=== PATIENT | male | born 1985 | race Caucasian/White ===

== ENCOUNTER 2016-12-15 13:50 | Emergency (ER) | payer OTHER ==
[2016-12-15] MEDS ORDERED: NS 500 ML IV ONE (16:19)
--- NOTE | 2016-12-15 16:19 | EDPHY ---
H & P Time Seen by Provider: 12/15/16 15:50 HPI/ROS: CHIEF COMPLAINT: Lower abdominal pain, groin pain HISTORY OF PRESENT ILLNESS: Patient is a 31-year-old male presents emergency department with "bladder pain" since last week. Patient took a trip to [place]. He slipped on a couch in thought his discomfort was secondary to sleeping wrong. He continues to have suprapubic pain. It moved to his right groin. Today he developed severe pain the bent him over. Became very nauseated. No vomiting. No fever or diaphoresis. He now has an ache but the sharp pain has resolved. No recent trauma. No dysuria frequency. Patient is sexually active and monogamous. No discharge from his penis. REVIEW OF SYSTEMS: My complete review of systems is negative except as mentioned in the HPI. Past Medical/Surgical History: The asthma Social history: The patient drinks occasionally. He does not smoke. Smoking Status: Never smoked Physical Exam: Vitals noted GENERAL: Well-appearing, in no acute distress, alert. HEENT: Eyes normal to inspection, normal pharynx, no signs of dehydration. NECK: No thyromegaly, no lymphadenopathy, supple. RESPIRATORY: Clear to auscultation bilaterally, no rales, rhonchi or wheezing. CVS: Regular rate and rhythm, no rubs, murmurs, or gallops. ABDOMEN: Soft, mild suprapubic tenderness to palpation, mild right lower quadrant tenderness to palpation no rebound or guarding, nondistended, no organomegaly. : Circumcised. Normal appearing genitalia. No testicular tenderness or mass. No palpable hernia BACK: Normal to inspection, no CVA tenderness. SKIN: Normal color, no rash, warm, dry. No pallor. EXTREMITIES: No pedal edema, no joint swelling. NEURO/PSYCH: Alert and oriented, normal mood and affect Constitutional: Initial Vital Signs Temperature (C) 36.6 C 12/15/16 13:55 Heart Rate 57 L 12/15/16 13:55 Respiratory Rate 18 12/15/16 13:55 Blood Pressure 145/92 H 12/15/16 13:55 O2 Sat (%) 98 12/15/16 13:55 O2 Delivery Mode Room Air Allergies/Adverse Reactions: oxycodone HCl [From Percocet] Allergy (Mild, Verified 12/15/16 13:54) neomycin Allergy (Verified 12/15/16 13:54) shellfish derived Allergy (Verified 12/15/16 13:58) PROMAXINE HCL Allergy (Intermediate, Uncoded 12/12/10 17:20) tree nuts Allergy (Uncoded 12/15/16 13:58) Home Medications: Medication Instructions Recorded Albuterol 03/11/16 Tamsulosin HCl [Flomax] 0.4 mg PO DAILY #4 cap 12/15/16 Medical Decision Making ED Course/Re-evaluation: In the emergency department I discussed possible etiologies with the patient. I answered all his questions. IV was placed. He is not want pain medication at this time. Laboratory studies, urine, CT of the abdomen pelvis was ordered. Patient's CBC was normal. Chemistry panel unremarkable. Normal renal function. His UA showed positive red cells. CT abdomen and pelvis: Please refer the dictated report by Dr. Gigi Davis. The patient has a 2 mm distal right ureteral stone. I discussed the result with the patient. I answered all his questions. He was comfortable in the bed. I explained his diagnosis. He will follow up with Urology. He is given warnings prior to leaving. He did not want any narcotic medication. He was given Flomax. Patient has no significant pain at this time. However, doubt treat potential pain as a stone moves he was given Toradol 30 mg IV prior to leaving. Differential Diagnosis: Differential includes but is not limited to urinary tract infection, pyelonephritis, STD, hernia, kidney stone, bacteremia, sepsis, appendicitis - Data Points Laboratory Results: Laboratory Results 12/15/16 15:45 12/15/16 15:45 12/15/16 12/15/16 12/15/16 16:40 15:45 15:45 WBC 6.92 10^3/uL 10^3/uL (3.80-9.50) RBC 4.67 10^6/uL 10^6/uL (4.40-6.38) Hgb 15.6 g/dL g/dL (13.7-17.5) Hct 43.8 % % (40.0-51.0) MCV 93.8 fL fL (81.5-99.8) MCH 33.4 pg pg (27.9-34.1) MCHC 35.6 g/dL g/dL (32.4-36.7) RDW 12.1 % % (11.5-15.2) Plt Count 175 10^3/uL 10^3/uL (150-400) MPV 10.4 fL fL (8.7-11.7) Neut % (Auto) 56.0 % % (39.3-74.2) Lymph % (Auto) 32.5 % % (15.0-45.0) [place] % (Auto) 7.7 % % (4.5-13.0) Eos % (Auto) 2.3 % % (0.6-7.6) Baso % (Auto) 1.2 % % (0.3-1.7) Nucleat RBC Rel Count 0.0 % % (0.0-0.2) Absolute Neuts (auto) 3.88 10^3/uL 10^3/uL (1.70-6.50) Absolute Lymphs (auto) 2.25 10^3/uL 10^3/uL (1.00-3.00) Absolute Monos (auto) 0.53 10^3/uL 10^3/uL (0.30-0.80) Absolute Eos (auto) 0.16 10^3/uL 10^3/uL (0.03-0.40) Absolute Basos (auto) 0.08 10^3/uL 10^3/uL (0.02-0.10) Absolute Nucleated RBC 0.00 10^3/uL 10^3/uL (0-0.01) Immature Gran % 0.3 % % (0.0-1.1) Immature Gran # 0.02 10^3/uL 10^3/uL (0.00-0.10) Sodium 140 mEq/L mEq/L (134-144) Potassium 3.9 mEq/L mEq/L (3.5-5.2) Chloride 106 mEq/L mEq/L (97-110) Carbon Dioxide 24 mEq/l mEq/l (22-31) Anion Gap 10 mEq/L mEq/L (8-16) BUN 20 mg/dL mg/dL (7-23) Creatinine 1.2 mg/dL mg/dL (0.7-1.3) Estimated GFR > 60 Glucose 90 mg/dL mg/dL (70-100) Calcium 9.8 mg/dL mg/dL (8.5-10.4) Urine Color YELLOW Urine Appearance CLEAR Urine pH 6.0 (5.0-7.5) Ur Specific [place] 1.020 (1.002-1.030) Urine Protein NEGATIVE (NEGATIVE) Urine Ketones NEGATIVE (NEGATIVE) Urine Blood 1+ H (NEGATIVE) Urine Nitrate NEGATIVE (NEGATIVE) Urine Bilirubin NEGATIVE (NEGATIVE) Urine Urobilinogen NEGATIVE EU EU (0.2-1.0) Ur Leukocyte Esterase NEGATIVE (NEGATIVE) Urine RBC 10-15 /hpf H /hpf (0-3) Urine WBC 1-3 /hpf /hpf (0-3) Ur Epithelial Cells TRACE /lpf /lpf (NONE-1+) Urine Mucus TRACE /lpf /lpf (NONE-1+) Urine Glucose NEGATIVE (NEGATIVE) Medications Given: Discontinued Medications Sodium Chloride (Ns) 500 mls @ 0 mls/hr IV EDNOW ONE; Wide Open PRN Reason: Protocol Stop: 12/15/16 16:20 Last Admin: 12/15/16 16:29 Dose: 500 mls Departure - Departure Disposition: Home, Routine, Self-Care Clinical Impression: Kidney stone on right side Abdominal pain Qualifiers: Abdominal location: lower abdomen, unspecified Qualified Code(s): R10.30 - Lower abdominal pain, unspecified Condition: Good Instructions: Abdominal Pain (ED), Kidney Stones (ED) Additional Instructions: You have a 2 mm distal right ureteral stone. This will likely pass. Return with increasing pain, fever, vomiting or any other concerns. Referrals: Martin White MD [Medical Doctor] - 5-7 days, call for appt. Prescriptions: Tamsulosin HCl [Flomax] 0.4 mg PO DAILY #4 cap
[2016-12-15 16:33] LABS: % IMMATURE GRANULYOCYTES 0.3 % (0.0-1.1); ABSOLUTE IMMATURE GRANULOCYTES 0.02 10^3/uL (0.00-0.10); ADD DIFF? NO; ADD MORPH? NO; ADD SCAN? NO; ATYPICAL LYMPHOCYTE FLAG 20 (0-99); FRAGMENT RBC FLAG 0 (0-99); HEMATOCRIT 43.8 % (40.0-51.0); HEMOGLOBIN 15.6 g/dL (13.7-17.5); LEFT SHIFT FLG 0 (0-99); LIPEMIA HEMOLYSIS FLAG 90 (0-99); MEAN CELL HEMOGLOBIN 33.4 pg (27.9-34.1); MEAN CELL HEMOGLOBIN CONCENTR. 35.6 g/dL (32.4-36.7); MEAN CELL VOLUME 93.8 fL (81.5-99.8); MEAN PLATELET VOLUME 10.4 fL (8.7-11.7); PLATELET CLUMPS FLAG 10 (0-99); PLATELET COUNT 175 10^3/uL (150-400); RED BLOOD CELL COUNT 4.67 10^6/uL (4.40-6.38); RED CELL DISTRIBUTION WIDTH 12.1 % (11.5-15.2)
[2016-12-15 16:45] LABS: ANION GAP 10 mEq/L (8-16); CALCIUM 9.8 mg/dL (8.5-10.4); CARBON DIOXIDE 24 mEq/l (22-31); CHLORIDE 106 mEq/L (97-110); CREATININE 1.2 mg/dL (0.7-1.3); GLOMERULAR FILTRATION RATE > 60; GLUCOSE 90 mg/dL (70-100); POTASSIUM 3.9 mEq/L (3.5-5.2); SODIUM 140 mEq/L (134-144)
[2016-12-15 16:50] LABS: COLOR YELLOW; LEUKOCYTE ESTERASE,URINE NEGATIVE (NEGATIVE); NITRITE,URINE NEGATIVE (NEGATIVE)
[2016-12-15 16:53] LABS: MUCUS TRACE /lpf (NONE-1+)
[2016-12-15] MEDS ORDERED: KETOROLAC 30 MG/1 ML SDV IVP ONE (17:23)
[2016-12-15] MEDS ORDERED: TAMSULOSIN HCL 0.4 MG CAP PO ONE (17:23)
[2016-12-15 17:32] VITALS: BP 141/93; PULSE 80; RESP 16; TEMP 98.6; O2SAT 94
== END 2016-12-15 17:32 | disposition home or self-care (01) ==
DX: N20.0 Calculus of kidney (principal); J45.909 Unspecified asthma, uncomplicated; E86.9 Volume depletion, unspecified
CPT/HCPCS: 96374; J1885